=== PATIENT | female | born 1985 | race Caucasian/White ===

== ENCOUNTER 2017-08-02 07:30 | Inpatient (IN) | payer BC ==
[2017-08-02] MEDS: Lactated Ringer's 1,000 ML IV SCH (08:05)
[2017-08-02 08:57] VITALS: BMI 27.4
[2017-08-02 09:28] LABS: BASO % 1.3 % (0.0-2.0); EOS # 0.1 K/uL (0.0-0.7); EOS % 0.8 % (0.0-4.0); HEMOGLOBIN 12.6 g/dL (11.0-16.0); LYMPH # 1.3 K/uL (1.0-4.3); LYMPH % 16.4 % (20.0-40.0); MEAN CELL VOLUME 92.2 fL (81.0-99.0); MEAN CORPUSCULAR HEMOGLOBIN 31.4 pg (27.0-31.0); MEAN PLATELET VOLUME 10.7 fL (7.2-11.7); MONO # 0.6 K/uL (0.0-0.8); MONO % 7.9 % (0.0-10.0); NEUT % 73.6 % (50.0-75.0); NRBC % 0.1 % (0.0-2.0); RED CELL DISTRIBUTION WIDTH 14.3 % (11.5-14.5); WHITE BLOOD COUNT 8.2 K/uL (4.8-10.8)
[2017-08-02 09:29] LABS: BASO # 0.1 K/uL (0.0-0.2); SQUAMOUS EPITHIAL 8 /hpf (0-5); URINE BACTERIA MOD (<OCC); URINE BILIRUBIN NEGATIVE (NEGATIVE); URINE BLOOD 2+ (NEGATIVE); URINE CLARITY Hazy (Clear); URINE COLOR Yellow (YELLOW); URINE GLUCOSE (UA) NORMAL (Normal); URINE LEUKOCYTE ESTERASE 3+ Leu/uL (Negative); URINE PROTEIN NEGATIVE (NEGATIVE); URINE UROBILINOGEN NORMAL mg/dL (0.2-1.0)
[2017-08-02 09:34] LABS: ALBUMIN 3.1 g/dL (3.5-5.0); ALT/SGPT 11 U/L (9-52); AST/SGOT 19 U/L (14-36); BLOOD UREA NITROGEN 6 mg/dL (7-17); CALCIUM 8.6 mg/dl (8.6-10.4); GFR AFRICAN-AMERICAN > 60; GFR NON-AFRICAN AMERICAN > 60
--- NOTE | 2017-08-02 10:18 | OBHP ---
Datetime: 08/02/2017 10:12 IP Adm Impression: Term, intrauterine IP Admit Plan: Admit to unit Admit Comment, IP Provider: @ 39.1 wkws GA c/o vaginal bleeidn and sidhcarge since [employer] reaseing intensty adn fruqency, bright red, no blood clots with cramping q 5-10 min /10, deisre pain medicaion. pt dnie slof, +FM OB: P0 MANAGER [employer] RELATIONS: dnies hx of anobmral pap, fiboidf,s ovairna cyst, STI PMH: Hypothyoid PSH: dnies MEDS: PNV SHX: negaitve etoh/tobacco.drugs NKDA A/P @ 39.1 wks GA with VB iol for oligohydmanions -admit to L+D cardiopulmonary technician, ivf bedside sonogram [place] 4.8cm, no evidcne of placenta previa cytoce pain mangment con tcurent mange Pelvic Type - PN: Adequate Extremities - PN: Normal Abdomen - PN: Normal Back - PN: Normal Breast - PN: Normal Lungs - PN: Normal Heart - PN: Normal Thyroid - PN: Normal Neurologic - PN: Normal HEENT - PN: Normal General - PN: Normal FHR - Baseline A Provider: 125 Membranes, Provider: Intact Contraction Comments Provider: 5-10 min IP Hx Assessment: The History has been Reviewed and is Current EGA AdmitDate IP: 39.1 Vital Signs Provider: Reviewed; Within Normal Limits IP Chief Complaint: Uterine contractions NICHD Variability Prov Fetus A: Moderate 6-25bpm FHR Category Provider Fetus A: Category I NICHD Decel Fetus A IP Provider: None Dilatation, Provider: 2-3 Effacement, Provider: 50 Station, Provider: -3 Genitourinary Exam: Normal DTRs - PN: Normal
--- NOTE | 2017-08-02 12:51 | OBPN ---
Datetime: 08/02/2017 12:47 IP Progress Impression: Normal progression of labor IP Progress Plan: Continue present management Membranes, Provider: Intact FHR - Baseline A Provider: 125 Gestation - Est Wks by US: 39.1 IP Progress Note Comment: pt tali and examien rperots cramping on and off 10/29 denies lof, vb, +FM vss ve; 4cm A/P @ 39.1 wks GA in labor s/p cytotec for pitocin augmentaiotn pain mangment cont current mangnet Vital Signs Provider: Reviewed; Within Normal Limits FHR Category Provider Fetus A: Category I NICHD Variability Prov Fetus A: Moderate 6-25bpm Dilatation, Provider: 4 NICHD Decel Fetus A IP Provider: None Datetime: 08/02/2017 10:12 Contraction Comments Provider: 5-10 min Effacement, Provider: 50 Station, Provider: -3
[2017-08-02] MEDS ORDERED: Oxytocin 30 UNIT 30 UNITS/500 ML BAG IV SCH (13:00)
[2017-08-02] MEDS ORDERED: Fentanyl/Bupivacaine HCl 250 ML EPI ONE (13:47)
[2017-08-02] MEDS ORDERED: Oxytocin 30 UNIT 30 UNITS/500 ML BAG IV ONE (13:59)
--- NOTE | 2017-08-02 18:04 | OBPN ---
Datetime: 08/02/2017 18:00 IP Progress Impression: Normal progression of labor IP Progress Plan: Continue present management Membranes, Provider: Ruptured FHR - Baseline A Provider: 125 Gestation - Est Wks by US: 39.1 IP Progress Note Comment: pt tali and examien reports ctx pain that ocmes and goes vss ve; 5cm A/P @ 39.1 wks GA in labor s/p cytotec for pitocin augmentaiotn, iupc cont current managment pain mangment cont current mangnet Vital Signs Provider: Reviewed; Within Normal Limits FHR Category Provider Fetus A: Category I Dilatation, Provider: 6 NICHD Decel Fetus A IP Provider: None
[2017-08-02] MEDS ORDERED: Bupivacaine HCl 0.25% PF (30 ml) Inj ONE (19:52)
[2017-08-02] MEDS ORDERED: cefOXitin IV 2 gm in Saline 2 GM in Sodium Chloride 0.9% 100 ML IV STA (21:37)
[2017-08-02] MEDS ORDERED: Sodium Citrate/Citric Acid 15 ml Sol PO STA (21:38)
[2017-08-02] MEDS ORDERED: Sodium Bicarbonate (8.4%) 50 Meq Syringe ONE (21:41)
[2017-08-02] MEDS ORDERED: Sodium Citrate/Citric Acid 15 ml Sol ONE (21:54)
[2017-08-02] MEDS ORDERED: cefOXitin IV 2 gm in Saline 2 GM/50 ML BAG IVPB ONE (21:54)
[2017-08-02] MEDS ORDERED: Oxytocin 20 units in LR 2,000 ML IV ONE (22:30)
[2017-08-02] MEDS ORDERED: Lidocaine 2% MPF (5 ml) Inj ONE (23:19)
[2017-08-03] MEDS ORDERED: Oxycodone/Acetaminophen 5/325 mg Tab PO PRN (00:23)
--- NOTE | 2017-08-03 00:27 | PCM.SURG1 ---
Surgeon's Initial Post Op Note - Surgeon's Notes Surgeon: Leslie Bo MD Shotgun Shell Assembly Machine Operator: Eb Roman MD Type of Anesthesia: Spinal, Other Pre-Operative Diagnosis: Term Intrauterine , arrest of diltaion Operative Findings: live femlae infnat 9,9 weight of 8lbs 2 ounces, normal appeairn gutuers, tubes and ovaries b/l. whipped topping mixer present for delivery. Dr Eb Roman was medical assistant and prsent for entire case and essential in gainin gilbert, retractin, epxoures, holding bladder blade, closing all layers and obtainng hemostasis. Post-Operative Diagnosis: same as above Operation Performed: Primary Low transverse cesearen section Specimen/Specimens Removed: placenta Estimated Blood Loss: EBL {In ML}: 800 Blood Products Given: N/A Drains Used: No Drains Post-Op Condition: Good Date of Surgery/Procedure: 08/03/17 Time of Surgery/Procedure: 23:15
--- NOTE | 2017-08-03 00:34 | OBDS ---
DELIVERY PERSONNEL Delivery Doctor: Scrub Nurse: Shakira Matthews Women'S Soccer Coach: Trish Guerrero RN Anesthesiologist: MATERNAL INFORMATION Delivery Anesthesia: Epidural Maternal Complications: None Provider Comments: live fmeae op presentaiotn tihgt nuchal cor dx 1, 8lbs 2 ounces , ebl 800 ml pagars 9,9 normal appearin uterus, tubes and ovariers b/l arrest of dilation LABOR SUMMARY EDC: 08/08/2017 00:00 No. Babies in Womb: 0 Attempted: No Labor Anesthesia: Epidural LABOR INFORMATION Cervical Ripening Agents: Cytotec @ (Annotations: Cytotec 25 mcg by PO bucally x 1 dose) Oxytocin: Augmentation Group B Beta Strep: Negative (Annotations: 07/20/17) Steroids Given: None Reason Steroids Not Administered: Not Applicable MEMBRANES Membranes Rupture Method: Spontaneous Rupture of Membranes: 08/02/2017 13:57 Length of Rupture (hrs): 9.68 Amniotic Fluid Color: Clear Amniotic Fluid Amount: Scant Amniotic Fluid Odor: Normal STAGES OF LABOR Stage 3 hrs: 0 Stage 3 min: 1 VAGINAL DELIVERY Episiotomy: None Laceration Extension: N/A Laceration Type: None CSECTION DELIVERY Primary Indication: Arrest Dilatation CSection Urgency: Elective CSection Incidence: Primary Labor: Labor Elective: Elective CSection Incision: Lower Uterine Transverse BABY A INFORMATION Delivery Date/Time: 08/02/2017 23:38 Method of Delivery: Born in Route : No : N/A Forceps: N/A Vacuum Extraction: N/A Shoulder Dystocia : No SHOULDER DYSTOCIA BABY A Infant Delivery Date/Time: 08/02/2017 23:38 PRESENTATION/POSITION BABY A Presentation: Cephalic Cephalic Presentation: Vertex Breech Presentation: N/A PLACENTA INFORMATION BABY A Placenta Delivery Time : 08/02/2017 23:39 Placenta Method of Delivery: Spontaneous Placenta Status: Delivered SCORES BABY A Heart Rate 1 min: >100 bpm Resp Effort 1 min: Good Cry Reflex Irritability 1 min: Cough or Sneeze or Pulls Away Muscle Tone 1 min: Active Motion Color 1 min: Body [place], Extremities Blue SCORE 1 MIN: 9 Heart Rate 5 min: >100 bpm Resp Effort 5 min: Good Cry Reflex Irritability 5 min: Cough or Sneeze or Pulls Away Muscle Tone 5 min: Active Motion Color 5 min: Body [place], Extremities Blue SCORE 5 MIN: 9 INFORMATION BABY A Gestational Age at Delivery: 39.1 Gestational Status: Term Infant Outcome : Liveborn Infant Condition : Stable Infant Sex: Female IDENTIFICATION/MEDS BABY A ID Band Number: [id number] ID Band Location: Left Leg; Left Arm Sensor Applied: Yes Sensor Number: [id number] Sensor Location : Cord Clamp WEIGHT/LENGTH BABY A Birthweight (gms): 3685 Infant Weight (lb): 8 Infant Weight (oz): 2 Infant Length Inches: 20.00 Infant Length cms: 50.8 CORD INFORMATION BABY A No. Cord Vessels: 3 Nuchal Cord : Around Neck x1, Tight Cord Blood Taken: Yes Suction: Nose ASSESSMENT BABY A Complications: None Physical Findings at Delivery: Within Normal Limits Respirations: Appears Normal Quality Associate/ALS Called : No Infant Care By: Transferred To: Remains with Mother
[2017-08-03] MEDS ORDERED: ceFAZolin 1 GM in Sodium Chloride 0.9% 50 ML IVPB SCH (01:00)
[2017-08-03] MEDS: ceFAZolin 1 GM in Sodium Chloride 0.9% 50 ML IVPB SCH ×2 (03:39→12:50)
--- NOTE | 2017-08-03 07:02 | OBPPN ---
Datetime: 08/03/2017 06:59 PP Pain Prov: Within normal limits PP Nausea Prov: Denies PP Flatus Prov: No PP BM Prov: No PP Breasts Prov: Normal PP Heart Prov: Normal PP Lungs Prov: Normal PP Abdomen/Uterus Prov: Normal PP Lochia Prov: Normal PP Vulva/Perineum Prov: Normal PP CVA Tenderness Prov: Normal PP Extremities Prov: Normal PP C/S Incision Prov: Normal PP Progress Prov: Normal PP Impression Prov: Normal progression PP Plan Prov: Continue present management PP Progress Note Prov: pt seen and examiend adn reprots pain controlled with medicaion. pt dnei any fever, chills, naue, vomitign, cp, sob. pt not yet ambaitng, +hunter cathether, not passign flatu, toe lrating liuid and is breat feeding VSS PE GEN NAD AA ox 3 RESP CTAB?l CVS: RRR< +S1/S2 BREAST NT, NOn engorage db/l ABD: soft, NT/ND, +BS FUNDUS: Firm, at level o fumbilcs VE: minimal lochia, non foul smelling EXT: no calef tendnerness, engaive homans sign A/P s/p PLTCS POD #1 with hypothryoid -retart synthroid -Pain manamgnet: perocet/motirn -Advance diet at tolerated -dc hunter -encourage breast feedign adn mabuaiton -bowel ergime -Incentive spirometer -am labs -cont routine postop care IP PP Procedures: None Vital Signs Provider PP: Reviewed; Within Normal Limits
[2017-08-03 08:11] LABS: BASO # 0.1 K/uL (0.0-0.2); BASO % 0.4 % (0.0-2.0); HEMOGLOBIN 10.7 g/dL (11.0-16.0); LYMPH % 7.3 % (20.0-40.0); MEAN CELL VOLUME 92.2 fL (81.0-99.0); MEAN CORPUSCULAR HEMOGLOBIN 31.7 pg (27.0-31.0); MEAN CORPUSCULAR HGB CONC 34.4 g/dL (33.0-37.0); MEAN PLATELET VOLUME 10.2 fL (7.2-11.7); MONO % 7.5 % (0.0-10.0); NEUT # 11.2 K/uL (1.8-7.0); NEUT % 84.8 % (50.0-75.0); NRBC % 0.1 % (0.0-2.0); RBC 3.38 Mil/uL (3.80-5.20); RED CELL DISTRIBUTION WIDTH 13.7 % (11.5-14.5)
[2017-08-03 08:18] LABS: PLATELET COUNT 117 K/uL (130-400); WHITE BLOOD COUNT 13.3 K/uL (4.8-10.8)
[2017-08-03 08:28] LABS: ALB/GLOB RATIO 0.9 (1.0-2.1); ALBUMIN 2.3 g/dL (3.5-5.0); ALT/SGPT 21 U/L (9-52); AST/SGOT 24 U/L (14-36); BLOOD UREA NITROGEN 5 mg/dL (7-17); CALCIUM 8.1 mg/dl (8.6-10.4); GFR AFRICAN-AMERICAN > 60; GFR NON-AFRICAN AMERICAN > 60
--- NOTE | 2017-08-03 08:44 | OP ---
PROCEDURE DATE: 08/02/2017 SURGEON: Leslie Bo MD AMMONIUM SULFATE OPERATOR: Dr. Ariel Roman TYPE OF ANESTHESIA: Spinal epidural. PREOPERATIVE DIAGNOSES: Term intrauterine , arrest of dilation. POSTOPERATIVE DIAGNOSES: Term intrauterine , arrest of dilation. OPERATIVE FINDINGS: Live female , Apgars 9 and 9, weight of 8 pounds 10 ounces. Normal-appearing uterus, tubes and ovaries. Tight nuchal cord x1. OP presentation. Structural Manager was present for the delivery. Dr. Ariel Roman was surgical technologist who was present for the entire case and assisted in gaining entry, retraction, exposure, holding the bladder blade, closing all layers, and obtaining hemostasis. OPERATION PERFORMED: Primary low transverse section. SPECIMEN REMOVED: Placenta. ESTIMATED BLOOD LOSS: 800 mL. BLOOD PRODUCTS: None. COMPLICATIONS: None. DESCRIPTION OF THE PROCEDURE: The patient is a G1, P0 who was in induction of labor, oligohydramnios who subsequently was induced with arrest of dilation. Risks, benefits, alternatives, indications of primary low transverse section was discussed with the patient. The patient agreed, consented. The patient was transferred to the operating room where she was given preoperative prophylactic antibiotics. After time-out was performed, a Pfannenstiel skin incision was made with a scalpel and carried down to the underlying layer of the fascia with the Bovie. The fascia was incised in the midline, and the incision was extended laterally with the Bovie. The inferior aspect of the fascial incision was grasped with Allis and Brian clamps, and the underlying rectus muscles dissected off bluntly. Attention was then turned to the superior aspect in a similar fashion, was grasped with Allis and Brian clamps, and the underlying rectus muscles were dissected off bluntly. The rectus muscles were then bluntly in the midline. The peritoneum was identified and entered into clear space. The incision was extended laterally and superiorly until good visualization of the bladder. The lower end of the [place] was then re-inserted, and the lower uterine segment was incised in a transverse fashion. The uterine incision was extended laterally and bluntly. The surgeon's hand entered the uterine cavity. The infant head was delivered atraumatically. Nuchal cord tight was reduced x1 followed by delivery of shoulders, followed by delivery of the body. Both oral and nasal passages of the baby were bulb suctioned. Umbilical cord was clamped and cut. Baby was handed off to the awaiting customer service dispatcher. Cord blood and cord gases were collected and sent x2. The placenta was then delivered manually. The uterus was exteriorized, cleared of clots and debris. The uterine incision was repaired with 0-Vicryl in a running continuous locked fashion. A second layer of the same suture was used to close the uterus in a running imbricated manner. There was good hemostasis noted at the uterine incision site. There were normal tubes and ovaries. The uterus was then returned to the abdomen. The pericolic gutters were cleared of all clots and debris. The peritoneum was reapproximated and closed with 2-0 chromic in a running continuous fashion. The rectus was reapproximated and closed with 2-0 chromic in an interrupted manner. The fascia was reapproximated and closed with 0 Vicryl in a running continuous fashion. Subcutaneous space was closed with 2-0 plain in an interrupted manner. The skin was reapproximated and closed with 4-0 Monocryl in a running subcuticular fashion. At the end of the procedure, all needles, sponge, and instrument counts were noted to be correct x2. The patient tolerated the procedure well and was transferred to the recovery room in stable condition. Leslie Bo MD
[2017-08-03] MEDS: Lactated Ringer's 1,000 ML IV SCH ×2 (09:15→17:00)
[2017-08-03 09:48] LABS: BANDS 9 % (0-2); LYMPHOCYTE 8 % (20-40); MONOCYTE 6 % (0-10); NEUTROPHIL 77 % (50-75); PLATELET ESTIMATE SLIGHTLY DECREASED (NORMAL); TOTAL CELLS COUNTED 100
[2017-08-03] MEDS: Simethicone 80 mg Chewtab PO SCH ×4 (10:49→22:20)
[2017-08-03] MEDS: Oxycodone/Acetaminophen 5/325 mg Tab PO PRN ×3 (10:50→21:38)
[2017-08-04] MEDS ORDERED: Bisacodyl 5mg EC Tab PO ONE (00:24)
[2017-08-04] MEDS: Levothyroxine 88 MCG TAB PO SCH (06:09)
[2017-08-04 08:57] VITALS: RESP 20
[2017-08-04] MEDS: Simethicone 80 mg Chewtab PO SCH ×4 (10:59→21:43)
[2017-08-04] MEDS: Oxycodone/Acetaminophen 5/325 mg Tab PO PRN ×2 (11:00→15:24)
[2017-08-05] MEDS: Levothyroxine 88 MCG TAB PO SCH (06:44)
[2017-08-05 08:30] LABS: BASO % 0.4 % (0.0-2.0); EOS # 0.1 K/uL (0.0-0.7); EOS % 1.9 % (0.0-4.0); HEMOGLOBIN 10.5 g/dL (11.0-16.0); LYMPH # 1.4 K/uL (1.0-4.3); LYMPH % 19.6 % (20.0-40.0); MEAN CELL VOLUME 92.7 fL (81.0-99.0); MEAN CORPUSCULAR HEMOGLOBIN 32.1 pg (27.0-31.0); MEAN CORPUSCULAR HGB CONC 34.6 g/dL (33.0-37.0); MEAN PLATELET VOLUME 9.2 fL (7.2-11.7); MONO # 0.6 K/uL (0.0-0.8); MONO % 8.7 % (0.0-10.0); NEUT % 69.4 % (50.0-75.0); NRBC % 0.1 % (0.0-2.0); RBC 3.29 Mil/uL (3.80-5.20); RED CELL DISTRIBUTION WIDTH 13.8 % (11.5-14.5); WHITE BLOOD COUNT 7.3 K/uL (4.8-10.8)
[2017-08-05] MEDS: Simethicone 80 mg Chewtab PO SCH (10:25)
[2017-08-05 19:39] VITALS: BP 123/78; PULSE 88; TEMP 99; O2SAT 98
== END 2017-08-05 14:20 | disposition home or self-care (01) | DRG 765 ==
LOC: C.EROB 07:30 → C.4D 08:18 → C.4M 08-03 02:45
PROVIDERS: ADMIT Obstetrics & Gynecology; ATTEND Obstetrics & Gynecology
PROC: 10D00Z1 Extraction of Products of Conception, Low, Open Approach (ICD-10-PCS; principal; 2017-08-02)
DX: O69.1XX0 Labor and delivery complicated by cord around neck, with compression, not applicable or unspecified (principal); O41.03X0 Oligohydramnios, third trimester, not applicable or unspecified; O66.9 Obstructed labor, unspecified; Z3A.39 39 weeks gestation of pregnancy; Z37.0 Single live birth